=== PATIENT | male | born 1975 | race Two or more races ===

== ENCOUNTER 2017-07-10 11:49 | Emergency (ER) | payer OTHER ==
[~2017-07-10] VITALS: Ht 185.4 cm; Wt 97.5 kg
[2017-07-10] MEDS ORDERED: FORTAMET500 MG (12:34)
[2017-07-10] MEDS ORDERED: CHANTIX0.5 MG (12:35)
== END 2017-07-10 14:44 | disposition home or self-care (01) ==
LOC: ER 11:49
DX: M54.5 Low back pain (principal)

== ENCOUNTER 2019-12-22 22:10 | Emergency (ER) | payer OTHER ==
[~2019-12-22] VITALS: Ht 182.9 cm; Wt 102.1 kg
[~2019-12-22 22:10] MED LIST: CHANTIX0.5 MG; FORTAMET500 MG
[2019-12-22] MEDS ORDERED: AVAPRO300 MG (22:51)
[2019-12-23] MEDS ORDERED: CENTANY30 GM NASAL (01:49)
[2019-12-23] MEDS ORDERED: BACTRIM DS TAB1 EACH PO (01:49)
[2019-12-23] MEDS ORDERED: MUPIROCIN1 G1 TOP (01:53)
== END 2019-12-23 02:16 | disposition home or self-care (01) ==
LOC: ER 22:10
DX: L02.415 Cutaneous abscess of right lower limb (principal)